=== PATIENT | female | born 1975 | race Caucasian/White ===

== ENCOUNTER 2017-11-07 21:42 | Emergency (ER) | payer SELFPAY ==
--- NOTE | 2017-11-07 21:46 | ED.PDOC ---
History of Present Illness - General Stated Complaint: SEIZURES Time Seen by Provider: 11/07/17 21:44 Source: patient - History of Present Illness Timing/Duration: 1 hour Severity: mild Improving Factors: nothing Worsening Factors: nothing Associated Symptoms: denies symptoms Allergies/Adverse Reactions: Allergies Morphine Allergy (Intermediate, Unverified 10/27/13 11:51) Vomitting Penicillins Allergy (Unknown, Unverified 10/27/13 11:40) Codeine Allergy (Verified 11/07/17 21:57) Review of Systems - Review of Systems Constitutional: States: no symptoms reported EENTM: States: no symptoms reported Respiratory: States: no symptoms reported Cardiology: States: no symptoms reported Gastrointestinal/Abdominal: States: no symptoms reported Genitourinary: States: no symptoms reported Musculoskeletal: States: no symptoms reported Skin: States: no symptoms reported Neurological: States: no symptoms reported Endocrine: States: no symptoms reported Hematologic/Lymphatic: States: no symptoms reported Family Medical History - Family History Mother Family History: No Known Living Status: Still Living Physical Exam - Physical Exam General Appearance: Alert, Comfortable Eye Exam: bilateral normal ENT Exam: normal ENT inspection, hearing grossly normal, TMs normal, pharynx normal Neck: non-tender, full range of motion, supple Respiratory: chest non-tender, lungs clear, normal breath sounds, no respiratory distress, no accessory muscle use Cardiovascular/Chest: normal peripheral pulses, regular rate, rhythm, no edema, no gallop, no JVD, no murmur Gastrointestinal/Abdominal: normal bowel sounds, non tender, soft, no organomegaly, no pulsatile mass Back Exam: normal inspection, no CVA tenderness Extremities Exam: non-tender daycare manager Exam: normal hearing, normal speech, PERRL Coordination/Gait: normal finger to nose, normal gait Motor/Sensory: no motor deficit, no sensory deficit Progress - Results/Orders Results/Orders: Laboratory Tests 11/07/17 11/07/17 11/07/17 21:54 21:54 23:00 WBC 6.5 RBC 4.35 Hgb 13.4 Hct 39.4 MCV 90.6 MCH 30.8 MCHC 33.9 RDW 13.1 Plt Count 246 MPV 7.1 L Absolute Neuts (auto) 3.70 Absolute Lymphs (auto) 2.10 Absolute Monos (auto) 0.60 Absolute Eos (auto) 0.00 Absolute Basos (auto) 0.00 Neutrophils % 57.4 Lymphocytes % 32.5 Monocytes % 8.9 Eosinophils % 0.4 L Basophils % 0.8 Sodium 138 Potassium 3.2 L Chloride 106 Carbon Dioxide 21 Anion Gap 14.2 BUN 11 Creatinine 0.64 BUN/Creatinine Ratio 17.2 Random Glucose 83 Serum Osmolality 274.2 L Calcium 8.7 Total Bilirubin 0.7 AST 19 ALT 20 Alkaline Phosphatase 43 Serum Total Protein 7.2 Albumin 3.9 Globulin 3.3 Albumin/Globulin Ratio 1.2 Urine Opiates Screen Negative Urine Barbiturates Negative Ur Phencyclidine Scrn Negative U Amphetamin/Meth Scrn Negative U Benzodiazepines Scrn Negative U Cocaine Metab Screen Negative U Cannabinoids Screen Positive H Departure - Departure Clinical Impression: Seizure Time of Disposition: 23:16 Disposition: Discharge to Home or Self Care Condition: Good Activity: increase activity as tolerated - follow up with your PCP Return if symptoms recur Referrals: Brian Wells MD [Primary Care Provider] - 1-2 Weeks
[2017-11-07 21:57] VITALS: TEMP 98.7
[2017-11-07] MEDS ORDERED: LORazepam 0.5 MG TAB PO ONE (22:28)
[2017-11-07] MEDS ORDERED: LORazepam 0.5 MG TAB ONE (22:29)
--- NOTE | 2017-11-07 22:52 | CT ---
EXAM DESCRIPTION: Head CLINICAL HISTORY: SEIZURES COMPARISON: None Available TECHNIQUE: Contiguous axial CT images of the head were obtained. Coronal and sagittal reconstructions were created from the axial data. This exam was performed according to our departmental dose-optimization program, which includes automated exposure control, adjustment of the mA and/or kV according to patient size and/or use of iterative reconstruction technique. FINDINGS: There is no evidence of acute mass, mass effect, midline shift or hemorrhage. The ventricles and extra-axial CSF spaces are unremarkable. The brain parenchyma appears normal for the patient's age. No acute abnormalities of the bones is seen. IMPRESSION: No acute intracranial abnormality. Electronically signed by: Mj Alvarez 11/07/2017 10:51 PM [facility]
[2017-11-07 23:42] VITALS: BP 122/76; O2SAT 98
== END 2017-11-07 23:32 | disposition home or self-care (01) ==
LOC: ER 21:42
DX: R56.9 Unspecified convulsions (principal)